=== PATIENT | male | born 1955 | race Caucasian/White ===

== ENCOUNTER 2017-03-16 18:26 | Emergency (ER) | payer OTHER ==
[~2017-03-16] VITALS: Ht 160 cm; Wt 60.5 kg
[~2017-03-16 18:26] MED LIST: ADVIL,NUPRIN,M200 MG PO; ASPIR 8181 M1 PO; ASPIR-LOW81 MG PO; BENADRYL ALLERG25 MG PO; BENADRYL25 MG PO; BUSPAR15 MG PO; DIMENHYDRINATE50 MG PO; EXCEDRIN MIGRA1 EAC3 PO; FLONASE16 G1 BOTH NARES; GLIMEPIRIDE1 MG PO; LIPITOR80 MG PO; LOPRESSOR25 MG PO; LOTREL 10/21 CAPSULE PO; MEGARED OMEGA-1 EAC2 PO; MUCINEX1200 MG PO; NITROSTAT0.4 MG SL; OMEPRAZOLE20 MG PO; OMEPRAZOLE40 M1 PO; POTABA500 MG PO; ST. JOSEPH ASPI81 MG PO; VENTOLIN HFA18 GM IH; VITAMIN D2000 INTUN PO; XANAX0.5 MG PO; ZETIA10 MG PO
[2017-03-16 19:03] LABS: HEMATOCRIT 45.4 % (38.0-50.0); MCH 26.8 PG (29.0-34.0); MCHC 32.4 G/DL (30.0-36.0); MCV 82.8 FL (86-99); MEAN PLAT.VOLUME 8.8 uM^3 (9.0-12.4); PLATELET COUNT 290 K/uL (156-360); RBC DIS.WIDTH-CV 13.3 % (11.8-14.6); RBC DIS.WIDTH-SD 40.5 % (39-53); RED BLOOD COUNT 5.48 M/uL (4.00-5.50); WHITE BLOOD COUNT 9.9 K/uL (4.1-10.2)
[2017-03-16 19:13] LABS: CHLORIDE 102 mEq/L (99-109); SODIUM 137 mEq/L (136-147)
[2017-03-16 19:15] LABS: GLUCOSE 112 mg/dL (70-99)
[2017-03-16 19:16] LABS: ANION GAP 11 MEQ/L (2-14)
[2017-03-16 19:17] LABS: TOTAL BILIRUBIN 0.5 mg/dL (0.0-1.0)
[2017-03-16 19:19] LABS: ALKALINE PHOSPHATASE 86 IU/L (3-129); GFR ESTIMATE (CALCULATED) 55 mL/min/
[2017-03-16 19:20] LABS: ADD MIUA? NO; BILIRUBIN NEGATIVE; BLOOD NEGATIVE; COLOR STRAW ((YELLOW)); GLUCOSE (STRIP) NEGATIVE; KETONES NEGATIVE; LEUKOCYTES NEGATIVE; NITRITE NEGATIVE; PROTEIN (STRIP) NEGATIVE; SPECIFIC GRAVITY 1.008 (1.000-1.030); UCUL ADDED? NO; UROBILINOGEN 0.2 MG/DL (0.2-1.0)
[2017-03-16 19:20] LABS: UREA NITROGEN (BUN) 17 mg/dL (9-23)
[2017-03-16] MEDS ORDERED: NEXIUM20 MG PO (19:43)
[2017-03-16] MEDS ORDERED: NORCO 5/3251 TABLET PO (21:18)
[2017-03-16 21:35] VITALS: BP 142/100
== END 2017-03-16 21:36 | disposition home or self-care (01) ==
LOC: EME 18:26
DX: R10.30 Lower abdominal pain, unspecified (principal); I10 Essential (primary) hypertension; E11.9 Type 2 diabetes mellitus without complications; Z79.84 Long term (current) use of oral hypoglycemic drugs; I25.2 Old myocardial infarction; J45.909 Unspecified asthma, uncomplicated; K21.9 Gastro-esophageal reflux disease without esophagitis
CPT/HCPCS: 74176; 80053; 81003; 85027; 99281; 99283; J1885

== ENCOUNTER 2017-04-21 14:35 | Observation (INO) | payer OTHER ==
[~2017-04-21] VITALS: Ht 160 cm; Wt 57.3 kg
[~2017-04-21 14:35] MED LIST changes: +LIPITOR40 MG PO; +NEXIUM20 MG PO; +NORCO 5/3251 TABLET PO; +PRILOSEC OTC20 MG PO
[2017-04-21 14:54] LABS: POINT-OF-CARE METER ID UU13113778
[2017-04-21 16:07] LABS: BASOPHIL COUNT 0.1 K/uL (0-0.1); EOSINOPHIL (%) 1.1 % (0-5); EOSINOPHIL COUNT 0.1 K/uL (0-0.3); HEMATOCRIT 44.5 % (38.0-50.0); IMMATURE GRANULOCYTE (%) 0.4 % (0.0-0.7); INSTRUMENT ABS NEUTROPHIL CT 7.5 K/uL; LYMPHOCYTE COUNT 1.5 K/uL (1.0-2.8); MCH 27.3 PG (29.0-34.0); MCHC 33.5 G/DL (30.0-36.0); MCV 81.5 FL (86-99); MEAN PLAT.VOLUME 8.5 uM^3 (9.0-12.4); MONOCYTE (%) 7.9 % (3-12); MONOCYTE COUNT 0.8 K/uL (0-0.8); NEUTROPHIL (%) 74.8 % (45-76); NEUTROPHIL COUNT 7.5 K/uL (1.8-6.4); PLATELET COUNT 288 K/uL (156-360); RBC DIS.WIDTH-CV 13.2 % (11.8-14.6); RBC DIS.WIDTH-SD 38.7 % (39-53); RED BLOOD COUNT 5.46 M/uL (4.00-5.50); WHITE BLOOD COUNT 10.1 K/uL (4.1-10.2)
[2017-04-21 16:19] LABS: CHLORIDE 107 mEq/L (99-109); POTASSIUM 3.6 mEq/L (3.7-5.4); SODIUM 139 mEq/L (136-147)
[2017-04-21 16:21] LABS: GLUCOSE 119 mg/dL (70-99)
[2017-04-21 16:22] LABS: ANION GAP 14 MEQ/L (2-14)
[2017-04-21 16:23] LABS: TOTAL BILIRUBIN 0.3 mg/dL (0.0-1.0)
[2017-04-21 16:24] LABS: ALKALINE PHOSPHATASE 88 IU/L (3-129)
[2017-04-21 16:25] LABS: GFR ESTIMATE (CALCULATED) 55 mL/min/
[2017-04-21 16:26] LABS: UREA NITROGEN (BUN) 18 mg/dL (9-23)
[2017-04-21 16:30] LABS: ADD MIUA? NO; BILIRUBIN NEGATIVE; BLOOD NEGATIVE; COLOR STRAW ((YELLOW)); GLUCOSE (STRIP) 50; KETONES NEGATIVE; LEUKOCYTES NEGATIVE; NITRITE NEGATIVE; PROTEIN (STRIP) NEGATIVE; SPECIFIC GRAVITY 1.006 (1.000-1.030); UCUL ADDED? NO; UROBILINOGEN 0.2 MG/DL (0.2-1.0)
[2017-04-21] MEDS ORDERED: VITAMIN D2000 UNIT PO (19:58)
[2017-04-21 21:38] LABS: Estimated Average Glucose 131 mg/dL (70-123); HEMOGLOBIN A1c (GLYCOHEMOGLOB) 6.2 % HGB (Below 5.7)
[2017-04-21 21:53] LABS: HDL CHOLESTEROL 38 MG/DL (Desirable>=40); LDL CHOLESTEROL 95 mg/dL (Desirable<100); NON-HDL CHOLESTEROL 120 mg/dL (Desirable<160); TOTAL CHOLESTEROL 158 mg/dL (Desirable<200); TRIGLYCERIDES 127 MG/DL (Normal: <150)
[2017-04-21 23:08] VITALS: BP 137/84
[2017-04-22 04:35] VITALS: BP 146/80
[2017-04-22 05:59] LABS: HEMATOCRIT 43.4 % (38.0-50.0); MCH 26.9 PG (29.0-34.0); MCHC 32.3 G/DL (30.0-36.0); MCV 83.3 FL (86-99); MEAN PLAT.VOLUME 8.5 uM^3 (9.0-12.4); PLATELET COUNT 288 K/uL (156-360); RBC DIS.WIDTH-CV 13.2 % (11.8-14.6); RBC DIS.WIDTH-SD 40.1 % (39-53); RED BLOOD COUNT 5.21 M/uL (4.00-5.50); WHITE BLOOD COUNT 7.9 K/uL (4.1-10.2)
[2017-04-22 06:08] LABS: POINT-OF-CARE METER ID UU14162513
[2017-04-22 06:27] LABS: ALKALINE PHOSPHATASE 67 IU/L (3-129); ANION GAP 9 MEQ/L (2-14); CHLORIDE 107 MEQ/L (99-109); GFR ESTIMATE (CALCULATED) > 59 mL/min/; GLUCOSE 110 mg/dL (70-99); POTASSIUM 4.1 MEQ/L (3.7-5.4); SAMPLE HEMOLYSIS CHECK 0; SAMPLE ICTERIC CHECK 0; SAMPLE LIPEMIA CHECK 0; SODIUM 139 MEQ/L (136-147); TOTAL BILIRUBIN 0.6 MG/DL (0.0-1.0); UREA NITROGEN (BUN) 12 mg/dL (9-23)
[2017-04-22 10:19] VITALS: BP 140/82
[2017-04-22 13:10] VITALS: BP 156/80
== END 2017-04-22 16:58 | disposition home or self-care (01) ==
LOC: EME 14:35 → EDOF 19:54 → ENRESERV 19:57 → 5WEST 22:20
PROVIDERS: Emergency Medicine; Internal Medicine
DX: G45.9 Transient cerebral ischemic attack, unspecified (principal); N17.9 Acute kidney failure, unspecified; E87.6 Hypokalemia; I25.10 Atherosclerotic heart disease of native coronary artery without angina pectoris; E78.5 Hyperlipidemia, unspecified; I10 Essential (primary) hypertension; Z79.82 Long term (current) use of aspirin; E78.00 Pure hypercholesterolemia, unspecified; J45.909 Unspecified asthma, uncomplicated; F41.9 Anxiety disorder, unspecified; Z87.19 Personal history of other diseases of the digestive system; Z82.49 Family history of ischemic heart disease and other diseases of the circulatory system; K21.9 Gastro-esophageal reflux disease without esophagitis; E11.9 Type 2 diabetes mellitus without complications; R13.10 Dysphagia, unspecified; I25.2 Old myocardial infarction
CPT/HCPCS: 70450; 70551; 80053; 80061; 81003; 82948; 83036; 85025; 85027; 93005; 93880; 99202; G0378; G8978 GP CH; G8978 GP CK; G8979 GP CH; G8980 GP CH; J1644; J7030